=== PATIENT | male | born 1985 | race Caucasian/White ===

== ENCOUNTER 2019-08-04 18:24 | Emergency (ER) | payer OTHER ==
[~2019-08-04] VITALS: Ht 170.2 cm; Wt 85.5 kg
[2019-08-04] MEDS ORDERED: IBUP-1114 PO (18:32)
[2019-08-04 19:12] LABS: BASO # 0.1 10^3/uL (0.0-0.2); BASO % 0.9 % (0.0-1.0); EOS # 0.2 10^3/uL (0.0-0.5); HEMATOCRIT 49.2 % (42.0-52.0); HEMOGLOBIN 17.2 g/dl (13.5-17.5); LYMPH # 2.8 10^3/uL (1.5-5.0); LYMPH % 34.5 % (24.0-44.0); MEAN CORPUSCULAR HEMOGLOBIN 31.2 pg (27.0-33.0); MEAN CORPUSCULAR VOLUME 89.1 fl (80.0-96.0); MONO # 0.8 10^3/uL (0.0-0.8); MONO % 9.4 % (0.0-5.0); NEUTROPHILS # 4.2 10^3/uL (1.5-8.5); NEUTROPHILS % 52.9 % (36.0-66.0); PLATELET COUNT, AUTOMATED 278 10^3/uL (150-450); RED BLOOD COUNT 5.52 10^6/uL (4.30-6.10)
[2019-08-04] MEDS ORDERED: NS 1,000 ML IV ONE (19:15)
[2019-08-04 19:31] LABS: ALBUMIN 3.9 GM/DL (3.2-5.2); ALT/SGPT 47 U/L (12-78); AMYLASE 54 U/L (25-115); BILIRUBIN,DIRECT 0.1 MG/DL (0.0-0.2); BILIRUBIN,TOTAL 0.5 MG/DL (0.2-1.0); BLOOD UREA NITROGEN 11 MG/DL (7-18); CALCIUM LEVEL 9.4 MG/DL (8.5-10.1); CARBON DIOXIDE LEVEL 24 MEQ/L (21-32); CHLORIDE LEVEL 108 MEQ/L (98-107); CREATININE FOR GFR 1.14 MG/DL (0.70-1.30); GLOMERULAR FILTRATION RATE > 60.0 (>60); GLUCOSE, FASTING 71 MG/DL (70-100); LIPASE 108 U/L (73-393); POTASSIUM SERUM 4.4 MEQ/L (3.5-5.1); SODIUM LEVEL 142 MEQ/L (136-145); TOTAL PROTEIN 7.3 GM/DL (6.4-8.2)
[2019-08-04] MEDS ORDERED: KETOROLAC 30 MG/ML VIAL (J1885) IV ONE (20:15)
--- NOTE | 2019-08-04 21:31 | REPVR ---
EXAM: CT Abdomen and Pelvis Without Contrast EXAM DATE/TIME: 08/04/2019 8:18 PM CLINICAL HISTORY: 34 years old, male; Abdominal pain; Flank; Left; Additional info: Flank pain-lt, hematuria, pelvic/groin pressure-lt TECHNIQUE: Imaging protocol: Computed tomography of the abdomen and pelvis without contrast. Radiation optimization: All CT scans at this facility use at least one of these dose optimization techniques: automated exposure control; mA and/or kV adjustment per patient size (includes targeted exams where dose is matched to clinical indication); or iterative reconstruction. COMPARISON: No relevant prior studies available. FINDINGS: Liver: Normal. No mass. Gallbladder and bile ducts: The gallbladder is contracted with no stones. Pancreas: Normal. No ductal dilation. Spleen: Normal. No splenomegaly. Adrenals: Normal. No mass. Kidneys and ureters: Nonobstructing right renal calculi in the lower pole measuring up to 6 mm. Slight left perinephric induration and minimal hydronephrosis with a left UPJ calculus measuring 7 x 4 x 3 mm. Stomach and bowel: There are a few sigmoid diverticula without diverticulitis. Slight wall thickening of the rectum and sigmoid suggesting minimal nonspecific distal colitis. Appendix: Surgical clips and sutures abdomen adjacent to the cecum suggesting prior appendectomy. Intraperitoneal space: Unremarkable. No free air. No significant fluid collection. Vasculature: Unremarkable. No abdominal aortic aneurysm. Lymph nodes: Unremarkable. No enlarged lymph nodes. Bladder: There is mild urinary bladder wall thickening with slight surrounding induration. Reproductive: Unremarkable as visualized. Bones/joints: Unremarkable. No acute fracture. Soft tissues: Unremarkable. IMPRESSION: 1. Left UPJ calculus measuring 3 x 4 x 7 mm with secondary obstructive uropathy. 2. Nonobstructing right renal calculi in the lower pole measuring up to 6 mm. 3. 3.There is mild urinary bladder wall thickening with slight surrounding induration. Cystitis is not excluded. 4. There are a few sigmoid diverticula without diverticulitis. 5. Slight wall thickening of the rectum and sigmoid suggesting minimal nonspecific distal colitis. Electronically signed by: Aaron Richards On 08/04/2019 21:30:35 PM
[2019-08-04] MEDS ORDERED: TAMSULOSIN 0.4 MG CAP PO ONE (22:00)
[2019-08-04] MEDS ORDERED: FLOM0.4C39 PO (22:05)
[2019-08-04] MEDS ORDERED: KETO10TAB PO (22:05)
[2019-08-04] MEDS ORDERED: NORC1TAB7 PO (22:05)
[2019-08-04 22:18] VITALS: BP 162/106
== END 2019-08-04 22:18 | disposition home or self-care (01) ==
LOC: M ED 18:24
DX: N20.1 Calculus of ureter (principal); Z79.899 Other long term (current) drug therapy
CPT/HCPCS: 74176; 80048; 80076; 81001; 82150; 83690; 85025; 96361; 96374; 99284; J1885